=== PATIENT | male | born 1965 | race Caucasian/White ===

== ENCOUNTER 2020-05-09 04:34 | Day surgery (SDC) | payer OTHER ==
[2020-05-08 15:55] VITALS: BMI 40.1
--- NOTE | 2020-05-09 09:04 | HP ---
[facility] - Chief Complaint Chief Complaint: right knee pain - Past Medical History Allergies/Adverse Reactions: Allergies Allergy/AdvReac Type Severity Reaction Status Date / Time No Known Drug Allergies Allergy Verified 05/08/20 16:05 - Current Medications Current Medications: Home Medications Medication Instructions Recorded Amlodipine Besylate [Norvasc -] 10 mg PO DAILY 05/08/20 Aspirin Coated [Ecotrin -] 81 mg PO DAILY 05/08/20 Naproxen Sodium [Aleve] 220 mg PO PRN PRN 05/08/20 Zolpidem Tartrate [Ambien] 10 mg PO DAILY 05/08/20 Oxycodone HCl/Acetaminophen 1 tab PO Q6H #15 tablet MDD 4 05/09/20 [Percocet 5-325 mg Tablet] Satellite Physical Exam - Physical Examination Vital Signs: Vital Signs Period Temp Pulse Resp BP Sys/Wyman Pulse Ox Last 24 Hr 98.0 F-98.0 F 80-80 20-20 153-153/91-91 97-97 General Appearance: Well Nourished, Well Developed, Alert & Oriented x3 ENT: Clear Lung: Normal air movement Extremities: Other (right knee- + swellng, + ttp, decr rom, + mcmurrays, nvi) Neurological: Intact, Alert, Oriented Satellite Impression/Plan - Impression/Plan Impression: right knee internal derangement Operative Procedure: right knee arthroscopy Date to be Performed: 05/09/20
[2020-05-09] MEDS ORDERED: PROPOFOL 20 ML ONE ×2 (09:21→09:34)
[2020-05-09] MEDS ORDERED: MIDAZOLAM HCL 2 MG/2 ML SINGLE DOSE VIAL ONE (09:21)
[2020-05-09] MEDS ORDERED: KETOROLAC TROMETHAMINE 30 MG/1 ML VIAL ONE (09:38)
[2020-05-09] MEDS ORDERED: DEXAMETHASONE SOD PHOSPHATE 4 MG/1 ML VIAL ONE (09:38)
[2020-05-09] MEDS ORDERED: LIDOCAINE 1%/EPI 1:100000 (20 ML MULTI DOSE VIAL) IJ ONE (09:45)
[2020-05-09] MEDS ORDERED: BUPIVACAINE HCL/PF 0.5% (5 MG/ML) 30 ML VIAL IJ ONE (09:45)
--- NOTE | 2020-05-09 10:04 | OP ---
Operative Note - Note: Operative Date: 05/09/20 ([facility]) Pre-Operative Diagnosis: right knee internal derangement Operation: right knee arthroscopy PMM, debridement chondroplasty trochlea and patella Post-Operative Diagnosis: Same as Pre-op Surgeon: William Solorzano Assistant Department Manager: Martin Newman Anesthesia: General, Local Specimens Removed: shavings Estimated Blood Loss (mls): 5
[2020-05-09] MEDS ORDERED: ONDANSETRON 4 MG/2 ML VIAL IVPUSH PRN (10:08)
[2020-05-09] MEDS ORDERED: oxyCODONE HCL 5 MG TABLET PO PRN ×2 (10:08)
[2020-05-09] MEDS ORDERED: LACTATED RINGERS SOLUTION 1,000 ML IV SCH (10:15)
--- NOTE | 2020-05-09 14:11 | OP ---
DATE OF OPERATION: 05/09/2020 PREOPERATIVE DIAGNOSIS: Internal derangement, right knee. POSTOPERATIVE DIAGNOSIS: Internal derangement, right knee. PROCEDURE: Arthroscopy right knee, partial medial meniscectomy and chondroplasty of the trochlea and patella. SURGICAL ATTENDING: William Solorzano MD HAND THERAPIST: Martin Newman MD ANESTHESIA: General. CLOSURE: Nylon 4-0. COMPLICATIONS: None. CONDITION: To the recovery room in stable condition. DESCRIPTION OF PROCEDURE: Patient was taken to the operating room on May 09, 2020. General anesthesia was administered by the anesthesiologist and LMA. The right lower extremity was prepped and draped in the usual sterile fashion. The medial and lateral infrapatellar portal sites were infiltrated with 1% Xylocaine with epinephrine. Both portals were then made with a 15-blade followed by blunt trocar. Scope was placed in the lateral infrapatellar portal and up into the suprapatellar pouch. The knee was inflated with a cocktail of 10 mL of 1% Xylocaine, 10 mL of 0.5% Marcaine and 20 mL of arthroscopic saline. After allowing the anesthetic to work, the procedure was performed. The pouch was visualized to be clean. The medial and lateral gutters were visualized to be clean. The undersurface of the patella revealed grade 4 changes in the entire lateral facet as well as on the entire trochlea on the lateral side of the knee. There was also some loose cartilage centrally. This was debrided using the shaver and probed to ensure that the residual cartilage on its rim was in stable condition. Any loose cartilage was debrided using the shaver. With valgus stress on the knee, the medial compartment was entered. The medial meniscus was visualized and probed, found that it already had a previous meniscectomy posteriorly. There was a flap tear at its midportion. This was debrided using the shaver. There were some grade 4 changes in the posteromedial corner of the tibia. Any loose articular cartilage in this region was debrided using the shaver. The anterior part of the medial meniscus was found to be intact. At 90 degrees the ACL was visualized, probed, found to be intact. In the figure 4 position lateral compartment was entered. The lateral meniscus was visualized and probed, found to be intact. Lateral femoral condyle was run, found to be intact as was the lateral tibial plateau. The knee was irrigated with copious amounts of irrigation. The fluid was drained. The knee was then inflated with just 20 mL of 0.5% Marcaine. The portals were closed using 3-0 nylon. A sterile pressure dressing was applied. Patient awakened from anesthesia and transferred to recovery room in stable condition. No complications. Estimated blood loss negligible. Otf [id number]
[2020-05-09 15:02] VITALS: BP 140/90; PULSE 78; TEMP 98
--- NOTE | 2020-05-11 13:05 | PATH ---
Surgical Pathology Report Patient Name: JOAN DIAZ Med. Rec. #: [id number] /Age/Gender: 1965 (Age: 54) / M Account: [id number] Location: [facility] Taken: 05/09/2020 Received: 05/09/2020 Reported: 05/11/2020 Physicians: William Solorzano M.D. Specimen(s) Received RIGHT KNEE SHAVINGS Clinical History Internal derangement of right knee Final Diagnosis KNEE, RIGHT, ARTHROSCOPIC SHAVINGS: FIBROSYNOVIAL TISSUE, FIBROCOLLAGENOUS TISSUE AND CARTILAGE. Electronically Signed Katey Puri M.D. Gross Description Received in formalin, labeled "right knee shavings," is a 4.0 x 3.7 x 0.4 cm. aggregate of matias-yellow soft tissue fragments. A contact center representative portion is submitted in one cassette. DL/05/09/2020 saudi/05/09/2020
== END 2020-05-09 12:50 | disposition home or self-care (01) ==
LOC: JASU-SURG 04:34
PROVIDERS: ATTEND Orthopaedic Surgery
PROC: 0SBC4ZZ Excision of Right Knee Joint, Percutaneous Endoscopic Approach (ICD-10-PCS; principal; 2020-05-09 08:45)
DX: M23.303 Other meniscus derangements, unspecified medial meniscus, right knee (principal); M23.41 Loose body in knee, right knee
CPT/HCPCS: 88304-TC; 94760

== ENCOUNTER 2023-08-10 08:54 | Day surgery (SDC) | payer OTHER ==
[2023-08-10] MEDS ORDERED: ONDANSETRON 4 MG/2 ML VIAL IVPUSH PRN ×2 (09:23→13:43)
[2023-08-10] MEDS ORDERED: oxyCODONE HCL 5 MG TABLET PO PRN (09:23)
[2023-08-10] MEDS ORDERED: VANCOMYCIN 1,000 MG VIAL (RESTRICTED TO ID ONLY) ONE (09:29)
[2023-08-10] MEDS ORDERED: LACTATED RINGERS SOLUTION 1,000 ML IV SCH (09:30)
[2023-08-10 09:48] VITALS: BMI 35.3
[2023-08-10] MEDS ORDERED: MIDAZOLAM HCL 2 MG/2 ML SINGLE DOSE VIAL ONE (09:48)
[2023-08-10] MEDS ORDERED: BUPIVACAINE LIPOSOME/PF (EXPAREL) 266 MG/20 ML VIAL ONE (09:48)
[2023-08-10] MEDS ORDERED: BUPIVACAINE HCL/PF 0.5% (5MG/ML) 10 ML VIAL ONE (09:48)
[2023-08-10] MEDS ORDERED: ACETAMINOPHEN INJECTION 100 ML IVPB ONE (09:48)
[2023-08-10] MEDS ORDERED: PROPOFOL 20 ML ONE ×5 (10:59→12:51)
[2023-08-10] MEDS ORDERED: ceFAZolin SODIUM 1 GM VIAL ONE ×2 (11:01)
[2023-08-10] MEDS ORDERED: ONDANSETRON 4 MG/2 ML VIAL ONE (11:54)
[2023-08-10] MEDS ORDERED: KETOROLAC TROMETHAMINE 30 MG/1 ML VIAL ONE (11:54)
[2023-08-10] MEDS ORDERED: BUPIVICAINE 0.25%/MORPH PF/KETOROLAC - 51ML DISP.SYRINGE IA ONE (12:15)
[2023-08-10] MEDS ORDERED: MAG HYDROX/AL HYDROX/SIMETH 30 ML UNIT-DOSE CUP PO PRN (13:43)
[2023-08-10] MEDS ORDERED: diazePAM 5 MG TABLET PO PRN (13:49)
[2023-08-10] MEDS ORDERED: PATIENT'S OWN MEDICATION (NON-FORMULARY) (Semaglutide [Ozempic] 0.25 MG/0.4 ML Pen.Injctr) SQ SCH (14:00)
[2023-08-10] MEDS: CEFAZOLIN SODIUM 2 GM in DEXTROSE 5%-WATER 100 ML IVPB SCH (18:44)
[2023-08-10] MEDS: TRANEXAMIC ACID 1000 MG/10 ML VIAL IVPUSH ONE (18:57)
[2023-08-10] MEDS: CEFAZOLIN 2 GM in DEXTROSE 5%-WATER - 50 ML IVPB ONE (18:57)
[2023-08-10] MEDS: LACTATED RINGERS SOLUTION 1,000 ML IV SCH (18:58)
[2023-08-10] MEDS: oxyCODONE HCL 5 MG TABLET PO PRN (19:57)
[2023-08-10] MEDS: SENNOSIDES/DOCUSATE COMBO (SENNA PLUS) TABLET (UD) PO SCH (21:09)
[2023-08-10] MEDS: GABAPENTIN 300 MG CAPSULE PO SCH (21:09)
[2023-08-10] MEDS: diazePAM 5 MG TABLET PO PRN (23:48)
[2023-08-11] MEDS: ACETAMINOPHEN 325 MG TABLET (FP) PO PRN (01:42)
[2023-08-11 07:52] LABS: HEMATOCRIT 34.8 % (35.4-49); HEMOGLOBIN 11.5 G/dL (11.7-16.9); MCH 29.3 pg (25.7-33.7); MEAN PLT VOLUME 7.7 fl (7.5-11.1); PLATELET COUNT 302.4 10^3/uL (134-434); RBC 3.91 10^6/uL (4.00-5.60); RDW 14.3 % (11.9-15.9); WHITE BLOOD COUNT 12.2 10^3/uL (4.0-10.8)
[2023-08-11 08:08] LABS: CALCIUM 8.8 mg/dl (8.5-10.1); CREATININE 0.9 mg/dl (0.6-1.3); POTASSIUM 3.8 mmol/L (3.5-5.1)
[2023-08-11] MEDS: MULTIVITAMINS (DAILY MVI) TABLET (FP) PO SCH (09:14)
[2023-08-11] MEDS: LOSARTAN POTASSIUM 50 MG TABLET PO SCH (09:14)
[2023-08-11] MEDS: ASPIRIN COATED 81 MG TABLET.EC PO SCH (09:14)
[2023-08-11] MEDS: CITALOPRAM HYDROBROMIDE 10 MG TABLET PO SCH (09:14)
[2023-08-11] MEDS: PANTOPRAZOLE 40 MG TABLET PO SCH (09:15)
[2023-08-11] MEDS: HYDROCHLOROTHIAZIDE 25 MG TABLET (FP) PO SCH (09:26)
[2023-08-11 15:07] VITALS: BP 130/69; PULSE 91; RESP 19; TEMP 98.7
== END 2023-08-11 18:10 | disposition home health service (06) ==
LOC: FASUSAT 08:54 → SUATTDRO 08:54 → FM/S 14:25 → FASUSAT 08-11 18:10
PROVIDERS: ATTEND Internal Medicine
PROC: 8E0Y0CZ Robotic Assisted Procedure of Lower Extremity, Open Approach (ICD-10-PCS; 2023-08-10)
PROC: 0SRC0JA Replacement of Right Knee Joint with Synthetic Substitute, Uncemented, Open Approach (ICD-10-PCS; principal; 2023-08-10 11:29)
DX: M17.11 Unilateral primary osteoarthritis, right knee (principal)
CPT/HCPCS: 20985; 27447; C1776; S2900; 36415; 73560-TC-RT-FY; 80048; 82962; 85027; 88305-TC; 88311-TC; 94760; 97010-GP; 97116-GP; 97162-GP; J0131

== ENCOUNTER 2023-08-31 06:18 | Day surgery (SDC) | payer OTHER ==
[2023-08-28 11:42] VITALS: BMI 35.3
[2023-08-31] MEDS ORDERED: ACETAMINOPHEN INJECTION 100 ML IVPB ONE (07:12)
[2023-08-31] MEDS ORDERED: MIDAZOLAM HCL 2 MG/2 ML SINGLE DOSE VIAL ONE ×2 (07:12→08:18)
[2023-08-31] MEDS ORDERED: DEXAMETHASONE SOD PHOSPHATE/PF 10 MG/ML SDV ONE (07:12)
[2023-08-31] MEDS ORDERED: BUPIVACAINE HCL/PF 0.5% (5MG/ML) 10 ML VIAL ONE (07:12)
[2023-08-31] MEDS ORDERED: BUPIVACAINE HCL/PF 0.5% (5 MG/ML) 30 ML VIAL IJ ONE (07:12)
[2023-08-31] MEDS ORDERED: BUPIVACAINE LIPOSOME/PF (EXPAREL) 266 MG/20 ML VIAL ONE (07:16)
[2023-08-31] MEDS ORDERED: oxyCODONE HCL 5 MG TABLET PO PRN ×2 (07:24)
[2023-08-31] MEDS ORDERED: ACETAMINOPHEN 325 MG TABLET (FP) PO PRN (07:24)
[2023-08-31] MEDS ORDERED: ONDANSETRON 4 MG/2 ML VIAL IVPUSH PRN ×2 (07:24→13:30)
[2023-08-31] MEDS ORDERED: VANCOMYCIN 1,000 MG VIAL (RESTRICTED TO ID ONLY) ONE (07:25)
[2023-08-31] MEDS ORDERED: EPINEPHrine/PF 1 MG/1 ML (1:1,000) AMPULE ONE (07:25)
[2023-08-31] MEDS ORDERED: BUPIVACAINE HCL/PF 2.5 MG/ML - 30 ML VIAL IJ ONE (07:25)
[2023-08-31] MEDS ORDERED: LACTATED RINGERS SOLUTION 1,000 ML IV SCH (07:30)
[2023-08-31] MEDS ORDERED: MAG HYDROX/AL HYDROX/SIMETH 30 ML UNIT-DOSE CUP PO PRN (07:42)
[2023-08-31] MEDS ORDERED: MAGNESIUM HYDROX 2400MG/30ML ORAL SUSPENSION 30 ML CUP PO PRN (07:42)
[2023-08-31] MEDS ORDERED: PATIENT'S OWN MEDICATION (NON-FORMULARY) (Diazepam [Diazepam] 10 MG Tablet) PO PRN (07:46)
[2023-08-31] MEDS ORDERED: PROPOFOL 20 ML ONE ×4 (08:00→10:07)
[2023-08-31] MEDS ORDERED: TRANEXAMIC ACID 1000 MG/10 ML VIAL ONE (08:19)
[2023-08-31] MEDS ORDERED: ceFAZolin SODIUM 1 GM VIAL ONE ×2 (08:19)
[2023-08-31] MEDS ORDERED: ONDANSETRON 4 MG/2 ML VIAL ONE (08:31)
[2023-08-31] MEDS ORDERED: KETOROLAC TROMETHAMINE 30 MG/1 ML VIAL ONE (08:31)
[2023-08-31] MEDS ORDERED: VANCOMYCIN 1,000 MG VIAL (RESTRICTED TO ID ONLY) IVPB ONE (09:41)
[2023-08-31] MEDS ORDERED: CITALOPRAM HYDROBROMIDE 10 MG TABLET PO SCH (10:00)
[2023-08-31] MEDS ORDERED: PANTOPRAZOLE 40 MG TABLET PO SCH (10:00)
[2023-08-31] MEDS ORDERED: [UNRECOGNIZED DRUG - REMARK] PO SCH (10:00)
[2023-08-31] MEDS ORDERED: MULTIVITAMINS (DAILY MVI) TABLET (FP) PO SCH (10:00)
[2023-08-31] MEDS ORDERED: CELECOXIB 200 MG CAPSULE PO SCH (10:00)
[2023-08-31] MEDS ORDERED: SENNOSIDES/DOCUSATE COMBO (SENNA PLUS) TABLET (UD) PO SCH (10:00)
[2023-08-31 10:53] VITALS: RESP 17
[2023-08-31] MEDS ORDERED: INSULIN ASPART SLIDING SCALE (NOVOLOG) 1 VIAL SQ SCH (11:00)
[2023-08-31 11:50] VITALS: BP 115/62; PULSE 67
[2023-08-31 13:01] VITALS: TEMP 97.8
[2023-08-31] MEDS ORDERED: TRANEXAMIC ACID 1000 MG/10 ML VIAL IVPUSH ONE ×2 (14:00→16:00)
[2023-08-31] MEDS ORDERED: CEFAZOLIN SODIUM 2 GM in DEXTROSE 5%-WATER 100 ML IVPB SCH (16:00)
[2023-08-31] MEDS ORDERED: HYDROmorphone HCl 2 MG/ML VIAL IVPUSH PRN (17:04)
[2023-08-31] MEDS ORDERED: ASPIRIN 81 MG CHEWABLE TABLETS ONE (17:24)
[2023-08-31] MEDS ORDERED: ACETAMINOPHEN 1000 MG/100 ML BAG IVPB SCH (18:00)
[2023-08-31] MEDS ORDERED: ASCORBIC ACID 500 MG TABLET (FP) PO SCH (22:00)
[2023-08-31] MEDS ORDERED: ASPIRIN 81 MG CHEWABLE TABLETS PO SCH (22:00)
[2023-08-31] MEDS ORDERED: ZOLPIDEM TARTRATE 5 MG TABLET PO PRN (22:00)
[2023-09-01] MEDS ORDERED: PATIENT'S OWN MEDICATION (NON-FORMULARY) (Semaglutide [Ozempic] 0.25 MG/0.4 ML Pen.Injctr) SQ SCH (08:00)
[2023-09-01] MEDS ORDERED: TRANEXAMIC ACID 1000 MG/10 ML VIAL IVPUSH ONE (09:00)
[2023-09-01] MEDS ORDERED: HYDROCHLOROTHIAZIDE 25 MG TABLET (FP) PO SCH (10:00)
[2023-09-01] MEDS ORDERED: LOSARTAN POTASSIUM 50 MG TABLET PO SCH (10:00)
== END 2023-08-31 19:00 | disposition home or self-care (01) ==
LOC: FASU 06:18 → FASUSAT 06:18 → FM/S 11:47 → FASUSAT 19:00
PROC: 0LQQ0ZZ Repair Right Knee Tendon, Open Approach (ICD-10-PCS; principal; 2023-08-31 08:44)
DX: S86.811A Strain of other muscle(s) and tendon(s) at lower leg level, right leg, initial encounter (principal); X58.XXXA Exposure to other specified factors, initial encounter; Y93.9 Activity, unspecified; Y92.9 Unspecified place or not applicable
CPT/HCPCS: 73560-TC-RT-FY; 82962; 94760; 97116-GP; 97162-GP; C1763

== ENCOUNTER 2023-09-07 08:50 | Emergency (ER) | payer OTHER ==
[2023-09-07 09:00] VITALS: BP 154/97; PULSE 108; RESP 18; TEMP 97.7; BMI 35.1
[2023-09-07] MEDS ORDERED: HYDROmorphone HCL/PF 1 MG/ML VIAL ONE ×2 (10:54→12:12)
[2023-09-07] MEDS: HYDROmorphone HCl 2 MG/ML VIAL IVPUSH ONE ×2 (10:55→12:30)
[2023-09-07 11:35] LABS: INR 1.13 (0.83-1.09); PROTHROMBIN TIME (PATIENT) 13.1 SEC (9.7-13.0)
[2023-09-07 11:37] LABS: ACTIVATED PTT 35.1 SECONDS (25.2-36.5)
[2023-09-07 11:43] LABS: HEMATOCRIT 35.9 % (35.4-49); HEMOGLOBIN 12.1 G/dL (11.7-16.9); MCH 29.5 pg (25.7-33.7); MCHC 33.6 g/dl (32.0-35.9); MEAN CELL VOLUME 87.7 fl (80-96); PLATELET COUNT 440.3 10^3/uL (134-434); RBC 4.09 10^6/uL (4.00-5.60); RDW 15.1 % (11.9-15.9); WHITE BLOOD COUNT 15.7 10^3/uL (4.0-10.8)
[2023-09-07 12:10] LABS: ALBUMIN 4.3 g/dl (3.4-5.0); BILIRUBIN,TOTAL 0.6 mg/dl (0.2-1); CALCIUM 10.3 mg/dl (8.5-10.1); CREATININE 0.8 mg/dl (0.6-1.3); POTASSIUM 3.8 mmol/L (3.5-5.1); TOT PROT 6.5 g/dl (6.4-8.2)
[2023-09-07 12:47] LABS: PLATELET ESTIMATE SLT INCREASE
== END 2023-09-07 14:10 | disposition home or self-care (01) ==
LOC: FER 08:50
PROC: 3E033GC Introduction of Other Therapeutic Substance into Peripheral Vein, Percutaneous Approach (ICD-10-PCS; principal; 2023-09-07)
PROC: 3E033GC Introduction of Other Therapeutic Substance into Peripheral Vein, Percutaneous Approach (ICD-10-PCS; 2023-09-07)
DX: M25.561 Pain in right knee (principal); M79.661 Pain in right lower leg; G89.18 Other acute postprocedural pain; Z20.822 Contact with and (suspected) exposure to COVID-19
CPT/HCPCS: 0241U-QW; 36415; 73502-TC-RT-FY; 73552-TC-RT-FY; 73562-TC-RT-FY; 73590-TC-RT-FY; 80053; 84484; 85027; 85610; 85730; 86850; 86900; 86901; 87040; 87070; 87075; 87205; 99284-25